=== PATIENT | female | born 1975 | race Caucasian/White ===

== ENCOUNTER 2019-03-17 06:22 | Inpatient (IN) | payer BC ==
[2019-03-16] MEDS: LACTATED RINGER'S 1,000 ML IV (21:12)
[2019-03-17] MEDS: LACTATED RINGER'S 1,000 ML IV (05:12)
[2019-03-17] MEDS: CIPROFLOXACIN 400MG/D5W 200 ML IVPB (07:00)
[2019-03-17] MEDS: metroNIDAZOLE 500 MG/NS (PMX) 100 ML IVPB (07:00)
[2019-03-17] MEDS ORDERED: ROCURONIUM 50 MG INJ ×2 (07:51→07:54)
[2019-03-17] MEDS ORDERED: MIDAZOLAM 1 MG/ML 2 ML INJ (07:51)
[2019-03-17] MEDS ORDERED: LIDOCAINE 2% (SDV) 5 ML INJ (07:54)
[2019-03-17] MEDS ORDERED: PROPOFOL 20 ML (07:54)
[2019-03-17] MEDS ORDERED: EPINEPHrine 1 MG INJ (07:54)
[2019-03-17] MEDS ORDERED: DEXAMETHASONE 4 MG/ML 5 ML INJ (09:08)
[2019-03-17] MEDS ORDERED: ONDANSETRON 4 MG INJ (09:09)
[2019-03-17] MEDS ORDERED: NEOSTIGMINE 3 MG/3 ML SYRINGE (10:44)
[2019-03-17] MEDS ORDERED: GLYCOPYRROLATE 0.4 MG INJ (10:44)
[2019-03-17] MEDS ORDERED: CEFAZOLIN 1 GM INJ (10:45)
[2019-03-17] MEDS ORDERED: HYDROmorphONE 1 MG/5 ML IV SYRINGE IV ×2 (11:09→11:30)
[2019-03-17] MEDS: HYDROmorphONE 1 MG/5 ML IV SYRINGE IV ×3 (11:13→11:53)
[2019-03-17] MEDS ORDERED: LABETALOL HCL 20MG INJ IV (11:30)
[2019-03-17] MEDS ORDERED: MIDAZOLAM 1 MG/ML 2 ML INJ IV (11:30)
[2019-03-17] MEDS ORDERED: MEPERIDINE 25 MG INJ IV (11:30)
[2019-03-17] MEDS ORDERED: hydrALAzine 20 MG INJ IV (11:30)
[2019-03-17] MEDS ORDERED: EPHEDrine 25 MG/5 ML SYG IV (11:30)
[2019-03-17] MEDS ORDERED: METOCLOPRAMIDE 10 MG INJ IV (11:30)
[2019-03-17] MEDS ORDERED: FENTAnyl 50 MCG/ML VIAL IV (11:30)
[2019-03-17] MEDS ORDERED: OXYCODONE/ACETAMINOPHEN (5/325) TAB PO ×2 (11:30)
[2019-03-17] MEDS: ALBUTEROL 0.083% (NEB) 2.5 MG/3 ML AMP HHN (11:31)
[2019-03-17] MEDS: DIPHENHYDRAMINE 50 MG INJ IV ×2 (11:53→18:02)
[2019-03-17] MEDS: FENTAnyl 50 MCG/ML VIAL IV ×3 (11:55→12:13)
[2019-03-17] MEDS: ONDANSETRON 4 MG INJ IV ×2 (14:20→23:11)
[2019-03-17] MEDS: KETOROLAC 30 MG INJ IV (14:20)
[2019-03-17] MEDS ORDERED: KETOROLAC 30 MG INJ IV (14:30)
[2019-03-17] MEDS: OXYCODONE/ACETAMINOPHEN (5/325) TAB PO ×3 (15:22→23:16)
[2019-03-18] MEDS: DIPHENHYDRAMINE 50 MG INJ IV ×2 (06:42→14:31)
[2019-03-18] MEDS: OXYCODONE/ACETAMINOPHEN (5/325) TAB PO ×3 (06:58→21:37)
[2019-03-18] MEDS: POTASSIUM CITRATE (SR) 5 MEQ TAB PO (09:00)
[2019-03-18] MEDS: HYDROCHLOROTHIAZIDE 12.5 MG CAP PO (09:00)
[2019-03-18] MEDS: ALLOPURINOL 300 MG TAB PO (09:13)
[2019-03-18] MEDS: IBUPROFEN 800 MG TAB PO ×3 (12:56→23:34)
[2019-03-19] MEDS: IBUPROFEN 800 MG TAB PO ×4 (05:49→23:14)
[2019-03-19] MEDS: POTASSIUM CITRATE (SR) 5 MEQ TAB PO (09:00)
[2019-03-19] MEDS: HYDROCHLOROTHIAZIDE 12.5 MG CAP PO (10:33)
[2019-03-19] MEDS: ALLOPURINOL 300 MG TAB PO (10:35)
[2019-03-19] MEDS: OXYCODONE/ACETAMINOPHEN (5/325) TAB PO ×3 (11:05→23:14)
[2019-03-19] MEDS: SUMATRIPTAN 50 MG TAB PO (22:05)
[2019-03-20] MEDS: DIPHENHYDRAMINE 25 MG CAP PO (00:06)
[2019-03-20] MEDS: OXYCODONE/ACETAMINOPHEN (5/325) TAB PO ×2 (05:35→11:01)
[2019-03-20] MEDS: IBUPROFEN 800 MG TAB PO ×2 (05:35→12:33)
[2019-03-20 05:58] LABS: ADD MAN DIFF? NO
[2019-03-20 06:07] LABS: WHITE BLOOD COUNT 5.7 10^3/ul (4.8-10.8)
[2019-03-20 06:07] LABS: BASOPHILS % 0.4 % (0.0-2.0); EOSINOPHILS % 0.2 % (0.0-7.0); HEMATOCRIT 36.5 % (37.0-47.0); HEMOGLOBIN 11.3 g/dl (12.0-16.0); LYMPHOCYTES # 1.6 10^3/ul (0.8-2.9); MEAN CORPUSCULAR HEMOGLOBIN 27.2 pg (29.0-33.0); MEAN PLATELET VOLUME 9.7 fl (7.4-10.4); MONOCYTE # 0.5 10^3/ul (0.3-0.9); MONOCYTES % 9.6 % (0.0-11.0); NEUTROPHIL # 3.4 10^3/ul (1.6-7.5); NEUTROPHILS % 60.3 % (39.0-77.0); PLATELET COUNT 171 10^3/UL (140-415); RED BLOOD COUNT 4.15 10^6/ul (4.20-5.40); RED CELL DISTRIBUTION WIDTH 12.9 % (11.5-14.5)
[2019-03-20] MEDS: HYDROCHLOROTHIAZIDE 12.5 MG CAP PO (08:19)
[2019-03-20] MEDS: ALLOPURINOL 300 MG TAB PO (08:19)
[2019-03-20] MEDS: POTASSIUM CITRATE (SR) 5 MEQ TAB PO (09:00)
[2019-03-20] MEDS ORDERED: IBUPROFEN 800 MG TAB PO (18:00)
== END 2019-03-20 14:20 | disposition home or self-care (01) | DRG 982 ==
LOC: REC 06:22 → 2NE 13:31
PROVIDERS: Obstetrics & Gynecology
PROC: 0UT90ZZ Resection of Uterus, Open Approach (ICD-10-PCS; principal; 2019-03-17 08:00)
PROC: 0UB50ZZ Excision of Right Fallopian Tube, Open Approach (ICD-10-PCS; 2019-03-17 08:00)
DX: R10.2 Pelvic and perineal pain (principal); T83.89XA Other specified complication of genitourinary prosthetic devices, implants and grafts, initial encounter; N92.1 Excessive and frequent menstruation with irregular cycle; G43.909 Migraine, unspecified, not intractable, without status migrainosus; Y76.8 Miscellaneous obstetric and gynecological devices associated with adverse incidents, not elsewhere classified; T41.45XA Adverse effect of unspecified anesthetic, initial encounter; Y92.239 Unspecified place in hospital as the place of occurrence of the external cause; Z90.79 Acquired absence of other genital organ(s); Z90.721 Acquired absence of ovaries, unilateral
CPT/HCPCS: 84703; 85025; 86850; 86900; 86901; 87086; 88305; 94664